=== PATIENT | male | born 2000 | race African-American/Black ===

== ENCOUNTER 2022-01-13 09:46 | Emergency (ER) | payer OTHER ==
[~2022-01-13] VITALS: Ht 188 cm; Wt 94.0 kg
[2022-01-13] MEDS ORDERED: TETANUS, DIPHTHERIA, PERTUSSIS VAC/PF 0.5ML (>10YR OLD) IM ONE (10:15)
[2022-01-13] MEDS ORDERED: LIDOCAINE HCL 1% 10 MG/ML 10ML VIAL IJ NR (10:15)
[2022-01-13] MEDS ORDERED: LIDOCAINE HCL/PF 1% 10 MG/ML 5ML VIAL INFIL ONE (10:15)
[2022-01-13] MEDS ORDERED: IBUPROFEN 800MG TABLET PO ONE (10:30)
[2022-01-13] MEDS ORDERED: IBUP-2030 MT (11:05)
[2022-01-13] MEDS ORDERED: CEPH500T MT (11:05)
[2022-01-13 11:06] VITALS: BP 115/67
[2022-01-13] MEDS ORDERED: CEPHALEXIN 250MG CAPSULE PO ONE (11:15)
== END 2022-01-13 11:24 | disposition home or self-care (01) ==
LOC: ER 09:46
DX: S61.210A Laceration without foreign body of right index finger without damage to nail, initial encounter (principal); W26.8XXA Contact with other sharp object(s), not elsewhere classified, initial encounter; Y93.89 Activity, other specified; Y92.89 Other specified places as the place of occurrence of the external cause; Y99.8 Other external cause status
CPT/HCPCS: 29130; 73140; 99283; J3490